=== PATIENT | female | born 1940 | race Caucasian/White ===

== ENCOUNTER 2018-06-19 01:42 | Emergency (ER) | payer OTHER ==
[~2018-06-19] VITALS: Ht 177.8 cm; Wt 66.0 kg
[2018-06-19] MEDS ORDERED: HYDROCODONE/APAP (5/325) TAB PO ONE (02:00)
[2018-06-19 02:03] VITALS: Ht 177.8 cm; Wt 66.0 kg
[2018-06-19] MEDS ORDERED: SOD CHLORIDE 0.9% 500 ML IV STA (02:08)
[2018-06-19] MEDS ORDERED: morphine 4 MG/ML VIAL IV STA ×2 (02:28→03:41)
[2018-06-19] MEDS ORDERED: ONDANSETRON 4 MG INJ IV STA ×2 (02:28→06:20)
--- NOTE | 2018-06-19 04:50 | ERD ---
ER Documentation Chief Complaint Chief Complaint bib ra c/o sudden onset lt upper back pain yesterday, now intollerable HPI This is a 78-year female brought in by rescue with complaint of sudden onset of left shoulder pain that radiates down the left side of her back in the left side of her upper chest. She denies any fevers chills nausea vomiting. Pain is mild to moderate intensity. She also complains of shortness of breath. Noted to have room air sat of 93% upon arrival. Denies any other current issues. No nausea no vomiting no fevers no chills. No sick contacts. No trauma. ROS All systems reviewed and are negative except as per history of present illness. Allergies Allergies: Coded Allergies: No Known Allergy (Unverified , 06/19/18) PMhx/Soc History of Surgery: Yes (hysterectomy) Anesthesia Reaction: No Hx Respiratory Disorders: Yes Hx Miscellaneous Medical Probl: Yes (diabetes) Hx Alcohol Use: No Hx Substance Use: No Hx Tobacco Use: No Smoking Status: Former smoker Physical Exam Vitals Vital Signs Date Temp Pulse Resp B/P (MAP) Pulse Ox O2 O2 Flow FiO2 Time Delivery Rate 06/19/18 99.4 70 20 139/64 97 Nasal 3.0 04:30 (89) Cannula 06/19/18 98.2 82 24 177/80 93 02:03 (112) Physical Exam Const: No acute distress Head: Atraumatic Eyes: Normal Conjunctiva ENT: Normal External Ears, Nose and Mouth. Neck: Full range of motion. No meningismus. Resp: Clear to auscultation bilaterally Cardio: Regular rate and rhythm, no murmurs Abd: Soft, non tender, non distended. Normal bowel sounds Skin: No petechiae or rashes Back: No midline or flank tenderness Ext: No cyanosis, or edema Neur: Awake and alert Psych: Normal Mood and Affect Result Diagram: 06/19/1822006/19/18220 Results 24 hrs Laboratory Tests Test 06/19/18 01:51 06/19/18 02:21 Bedside Glucose 253 mg/dL White Blood Count 8.8 10^3/ul Red Blood Count 4.89 10^6/ul Hemoglobin 14.0 g/dl Hematocrit 45.0 % Mean Corpuscular Volume 92.0 fl Mean Corpuscular Hemoglobin 28.6 pg Mean Corpuscular Hemoglobin Concent 31.1 g/dl Red Cell Distribution Width 14.6 % Platelet Count 206 10^3/UL Mean Platelet Volume 11.7 fl Immature Granulocytes % 0.300 % Neutrophils % 48.0 % Lymphocytes % 40.2 % Monocytes % 8.2 % Eosinophils % 2.6 % Basophils % 0.7 % Nucleated Red Blood Cells % 0.0 /100WBC Immature Granulocytes # 0.030 10^3/ul Neutrophils # 4.2 10^3/ul Lymphocytes # 3.5 10^3/ul Monocytes # 0.7 10^3/ul Eosinophils # 0.2 10^3/ul Basophils # 0.1 10^3/ul Nucleated Red Blood Cells # 0.0 10^3/ul Sodium Level 143 mmol/L Potassium Level 3.9 mmol/L Chloride Level 106 mmol/L Carbon Dioxide Level 24 mmol/L Anion Gap 13 Blood Urea Nitrogen 21 mg/dl Creatinine 0.77 mg/dl Est Glomerular Filtrat Rate mL/min mL/min Glucose Level 266 mg/dl Calcium Level 10.3 mg/dl Total Bilirubin 0.2 mg/dl Direct Bilirubin 0.00 mg/dl Indirect Bilirubin 0.2 mg/dl Aspartate Amino Transf (AST/SGOT) 71 IU/L Alanine Aminotransferase (ALT/SGPT) 77 IU/L Alkaline Phosphatase 87 IU/L Troponin I < 0.012 ng/ml B-Type Natriuretic Peptide 794 PG/ML Total Protein 7.8 g/dl Albumin 4.5 g/dl Globulin 3.30 g/dl Albumin/Globulin Ratio 1.36 Current Medications Medications Dose Sig/Nicole Start Time Status Last (Trade) Ordered Route PRN Stop Time Admin Dose Reason Admin 1 tab ONCE ONCE 06/19/18 DC 06/19/18 Acetaminophen PO 02:00 01:57 / 06/19/18 02:01 Hydrocodone Bitart ([place] (5/325)) Sodium 500 ml @ Q1H STAT 06/19/18 DC 06/19/18 Chloride 500 mls/hr IV 02:08 02:35 06/19/18 03:07 Morphine 4 mg ONCE STAT 06/19/18 DC 06/19/18 Sulfate IV 02:28 02:35 (morphine) 06/19/18 02:29 Ondansetron 4 mg ONCE STAT 06/19/18 DC 06/19/18 HCl (Zofran IV 02:28 02:35 Inj) 06/19/18 02:29 Morphine 4 mg ONCE STAT 06/19/18 DC 06/19/18 Sulfate IV 03:41 03:46 (morphine) 06/19/18 03:42 Furosemide 40 mg ONCE ONCE 06/19/18 UNV (Lasix) IV 05:00 06/19/18 05:01 Procedures/MDM EKG: Rate/Rhythm: [Normal Sinus Rhythm] QRS, ST, T-waves: [No changes consistent w/ acute ischemia] Impression: [No evidence of ischemia or arrhythmia] Chest X-ray 1V Interpreted by me: Soft Tissue: No acute abnormalities Bones: No acute abnormalities Mediastinum/Cardiac Silhouette/Lungs: [No acute abnormalities] Patient's symptoms are concerning for cardiac cause will require inpatient workup and continuous monitoring. Further w/u for ischemia, arrhythmia, PE or dissection will be deferred to the inpatient team. Accepting Care Team: Current data and ongoing care discussed. Time: 4:15 AM Primary Provider: Erick GUPTA Consulting: Deferred to transfer to hospital Outstanding Data: none Departure Diagnosis: Primary Impression: Chest pain Chest pain type: unspecified Qualified Codes: R07.9 - Chest pain, unspecified Condition: Serious KARIN HOANG Jun 19, 2018 04:50
[2018-06-19] MEDS ORDERED: FUROSEMIDE 40 MG INJ IV ONE (05:00)
[2018-06-19] MEDS ORDERED: HYDROmorphONE 1 MG/ML SYG IV STA (06:20)
[2018-06-19 06:48] VITALS: BP 175/60; PULSE 68; RESP 18
== END 2018-06-19 07:13 | disposition short-term general hospital (02) ==
LOC: E/R 01:42
DX: R07.9 Chest pain, unspecified (principal); E11.9 Type 2 diabetes mellitus without complications; Z87.891 Personal history of nicotine dependence
CPT/HCPCS: 71045; 73030; 80053; 82962; 83605; 83880; 84484; 85025; 87040; 87400; 93005; J1170; J1940; J2270; J2405; J7040; 96374; 96375; 96376